=== PATIENT | female | born 1995 | race Caucasian/White ===

== ENCOUNTER 2017-02-19 19:26 | Emergency (ER) | payer OTHER, BC ==
[~2017-02-19] VITALS: Ht 165.1 cm; Wt 63.6 kg
[2017-02-19 19:51] VITALS: BP 117/88
--- NOTE | 2017-02-19 20:12 | PHYS DOC ---
Past History Past Medical History: No Pertinent History Past Surgical History: No Surgical History Smoking: Non-smoker Alcohol Use: Occasionally Drug Use: None Adult General Chief Complaint Chief Complaint: EYE PROBLEMS [facility] Patient is a 21 year old F who presents with eye problem. She states that approximately 8-9 hours prior to arrival cleaning supplies splashed into her left eye. She initially rinsed the eye out and was able to continue working throughout the day. She describes irritation to the left eye and some watering but no vision loss or pain. No light sensation is noted no other associated symptoms are noted at this time. She does not wear contacts or other corrective lenses Review of Systems Review of Systems Constitutional: Denies fever or chills [] Eyes: Negative except history of present illness HENT: Denies nasal congestion or sore throat [] Respiratory: Denies cough or shortness of breath [] Cardiovascular: No additional information not addressed in HPI [] GI: Denies abdominal pain, nausea, vomiting, bloody stools or diarrhea [] : Denies dysuria or hematuria [] Musculoskeletal: Denies back pain or joint pain [] Integument: Denies rash or skin lesions [] Neurologic: Denies headache, focal weakness or sensory changes [] Endocrine: Denies polyuria or polydipsia [] Family History Family History Noncontributory Current Medications Current Medications Reviewed Allergies Allergies Allergies Coded Allergies Type Severity Reaction Last Updated Verified No Known Drug Allergies 02/19/17 No Physical Exam Physical Exam Constitutional: Well developed, well nourished, no acute distress, non-toxic appearance. [] HENT: Normocephalic, atraumatic, bilateral external ears normal, oropharynx moist, no oral exudates, nose normal. [] Eyes: PERRLA, EOMI, no discharge. [] Left eye: Mild conjunctival irritation mostly inferior. Neck: Normal range of motion, no tenderness, supple, no stridor. [] Cardiovascular:Heart rate regular rhythm, no murmur [] Lungs & Thorax: Bilateral breath sounds clear to auscultation [] Abdomen: Bowel sounds normal, soft, no tenderness, no masses, no pulsatile masses. [] Skin: Warm, dry, no erythema, no rash. [] Back: No tenderness, no CVA tenderness. [] Extremities: No tenderness, no cyanosis, no clubbing, ROM intact, no edema. [] Neurologic: Alert and oriented X 3, normal motor function, normal sensory function, no focal deficits noted. [] Psychologic: Affect normal, judgement normal, mood normal. [] Current Patient Data Vital Signs Please refer to nursing documentation EKG EKG [] Radiology/Procedures Radiology/Procedures [] Course & Med Decision Making Course & Med Decision Making Pertinent Labs and Imaging studies reviewed. (See chart for details) No obvious I emergency was noted. Further examination of eyes using fluorescein was declined Dragon Disclaimer Dragon Disclaimer This chart was dictated in whole or in part using Voice Recognition software in a busy, high-work load, and often noisy Emergency Department environment. It may contain unintended and wholly unrecognized errors or omissions. Departure Departure: Impression: Primary Impression: Eye irritation Disposition: 01 HOME, SELF-CARE Condition: LEFT WITHOUT BEING SEEN Patient Instructions: Artificial Tears eye ointment Additional Instructions: Aletha was seen in the emergency room for eye irritation. No emergency medical condition was found on history or physical exam. She was advised to follow up with [facility] in the next one-two weeks for further management SHIELA SAMPSON MD Feb 19, 2017 20:12
== END 2017-02-19 20:21 | disposition home or self-care (01) ==
LOC: ER 19:26
DX: H57.8 Other specified disorders of eye and adnexa (principal)
CPT/HCPCS: 99281